=== PATIENT | female | born 1955 | race Caucasian/White ===

== ENCOUNTER 2022-02-03 12:12 | Emergency (ER) | payer OTHER ==
--- NOTE | 2022-02-03 12:49 | ED ---
URI HPI - General Chief Complaint: Upper Respiratory Infection Stated Complaint: URI Time Seen by Provider: 02/03/22 12:42 Source: patient, RN notes reviewed, old records reviewed Mode of arrival: ambulatory Limitations: no limitations - History of Present Illness Initial Comments: This is a well-appearing 67-year-old female that presents to the emergency room with complaints of cough, fatigue and sore throat past 5 days. Patient denies any chest pain or difficulty breathing. No nausea vomiting but has had some diarrhea which she attributes to her metformin. MD Complaint: cough, other (sore throat and fatigue) -: days(s) (6) Severity scale (1-10): 0 Quality: aching Consistency: constant Improves With: nothing - Related Data Home Medications Medication Instructions Recorded Confirmed Levothyroxine Sodium [Synthroid] 125 mcg PO DAILY 02/03/22 02/03/22 Metoprolol Tartrate [Lopressor] 50 mg PO BID 02/03/22 02/03/22 amLODIPine [Norvasc] 10 mg PO DAILY 02/03/22 02/03/22 metFORMIN HCL [Glucophage] 500 mg PO BID 02/03/22 02/03/22 predniSONE 5 - 10 mg PO DAILY 02/03/22 02/03/22 Allergies Allergy/AdvReac Type Severity Reaction Status Date / Time ciprofloxacin [From Cipro] Allergy Rash/Hives Verified 02/03/22 13:21 Penicillins Allergy Rash/Hives Verified 02/03/22 13:21 Sulfa (Sulfonamide Allergy Rash/Hives Verified 02/03/22 13:21 Antibiotics) tetracycline Allergy Rash/Hives Verified 02/03/22 13:21 trazodone Allergy Rash/Hives Verified 02/03/22 13:21 Review of Systems ROS Statement: Those systems with pertinent positive or pertinent negative responses have been documented in the HPI. ROS Other: All systems not noted in ROS Statement are negative. Past Medical History Past Medical History: Diabetes Mellitus History of Any Multi-Drug Resistant Organisms: None Reported Additional Past Surgical History / Comment(s): Aortic valve replacement Past Psychological History: No Psychological Hx Reported Smoking Status: Never smoker Past Alcohol Use History: None Reported Past Drug Use History: None Reported General Exam Limitations: no limitations General appearance: alert, in no apparent distress Head exam: Present: atraumatic, normocephalic Eye exam: Present: normal appearance. Absent: scleral icterus, conjunctival injection, periorbital swelling ENT exam: Present: normal exam, normal oropharynx, mucous membranes moist Expanded Mouth exam: Present: tongue normal, tongue elevation. Absent: drooling, trismus, muffled voice, laceration Throat exam: normal inspection. negative: tonsillar erythema, tonsillar exudate, R peritonsillar mass, L peritonsillar mass Neck exam: Present: full ROM. Absent: tenderness, meningismus, lymphadenopathy Respiratory exam: Present: normal lung sounds bilaterally. Absent: respiratory distress, accessory muscle use Cardiovascular Exam: Present: bradycardia, clicks GI/Abdominal exam: Present: soft. Absent: distended, tenderness Neurological exam: Present: alert, oriented X3, normal gait Psychiatric exam: Present: normal affect, normal mood Skin exam: Present: warm, dry, normal color. Absent: cyanosis, diaphoretic, petechiae, pallor Course Vital Signs 02/03/22 02/03/22 02/03/22 12:18 13:30 13:59 Temperature 98.7 F 98.3 F Pulse Rate 53 L 65 Respiratory 20 18 18 Rate Blood Pressure 152/71 143/85 O2 Sat by Pulse 99 98 Oximetry Medical Decision Making - Medical Decision Making Patient is influenza A positive. x-ray interpreted by me shows no evidence of consolidation. Radiologist interpretation mild cardiomegaly with pulmonary venous congestion, scattered parenchymal changes hyperinflation compatible with COPD. patient was offered pain medication and declined. Lung sounds are clear to auscultation oxygen saturation is 99% on room air. No respiratory distress. Patient instructed to continue Tylenol and Motrin as needed for any fevers or discomfort. Increase her fluid intake. Vitamin C vitamin D and zinc daily for immune health. Return to the emergency room with any new or concerning symptoms. Follow-up with her primary care doctor next week. Case discussed with Dr. Calzada - Lab Data Lab Results 02/03/22 Range/Units 12:28 Influenza Type A (PCR) Detected A (Not Detectd) Influenza Type B (PCR) Not Detected (Not Detectd) RSV (PCR) Not Detected (Not Detectd) SARS-CoV-2 (PCR) Not Detected (Not Detectd) Disposition Clinical Impression: Influenza A Disposition: HOME SELF-CARE Condition: Good Instructions (If sedation given, give patient instructions): Influenza (ED) Additional Instructions: Increase your fluid intake, Tylenol and or Motrin as needed for any fevers pain or discomfort. Continue taking the vitamin C, vitamin D and zinc. Return to the emergency room with pain or concerning symptoms. Follow-up with the primary care doctor next week. Is patient prescribed a controlled substance at d/c from ED?: No Referrals: Nonstaff,Physician [Primary Care Provider] - 1-2 days Time of Disposition: 13:53
--- NOTE | 2022-02-03 13:29 | XR ---
EXAMINATION TYPE: XR chest 2V DATE OF EXAM: 02/03/2022 COMPARISON: NONE HISTORY: Shortness of breath TECHNIQUE: Frontal and lateral views of the chest are obtained. FINDINGS: Scattered senescent parenchymal changes noted. Hyperinflation compatible with COPD. No evidence for infiltrate. No evidence for atelectasis. Mild cardiomegaly with pulmonary venous congestion. No overt failure. Mediastinal structures are stable and grossly unremarkable. No evidence for hilar prominence. Degenerative changes dorsal spine. IMPRESSION: 1. Mild cardiomegaly with pulmonary venous congestion.
[2022-02-03 13:54] VITALS: RESP 18
[2022-02-03 14:00] VITALS: BP 143/85; PULSE 65; TEMP 98.3
== END 2022-02-03 14:00 | disposition home or self-care (01) ==
LOC: EC 12:12
DX: J10.1 Influenza due to other identified influenza virus with other respiratory manifestations (principal); E11.9 Type 2 diabetes mellitus without complications; Z79.84 Long term (current) use of oral hypoglycemic drugs; Z79.899 Other long term (current) drug therapy; Z88.0 Allergy status to penicillin; Z88.2 Allergy status to sulfonamides; Z88.1 Allergy status to other antibiotic agents; Z88.8 Allergy status to other drugs, medicaments and biological substances; Z20.822 Contact with and (suspected) exposure to COVID-19
CPT/HCPCS: 71046; 87636; 99283

== ENCOUNTER 2022-06-21 08:27 | Day surgery (SDC) | payer MEDICARE ==
[~2022-06-21 08:27] MED LIST: LACTATED RINGERS 1,000 ML IV SCH; LIDOCAINE 1% (10MG/ML) FOR IV START INTRADERMA PRN
[2022-06-21 09:00] VITALS: RESP 16; TEMP 97.1
[2022-06-21 09:13] LABS: Glucose,Whole Blood 210 mg/dL (70-110)
[2022-06-21] MEDS ORDERED: PROPOFOL 10 MG/ML 20 ML VIAL IV ONE (09:18)
[2022-06-21] MEDS ORDERED: LIDOCAINE 2% INJ 20 MG/ML (2 ML VIAL) ONE (09:18)
--- NOTE | 2022-06-21 09:43 | P.PCN ---
Date of Procedure: 06/21/22 Procedure(s) Performed: BRIEF HISTORY: Patient is a 67-year-old pleasant white female scheduled for an elective colonoscopy as a part of screening for colon cancer/positive cologuard. PROCEDURE PERFORMED: Colonoscopy with snare polypectomy. PREOPERATIVE DIAGNOSIS: Screening for colon cancer/positive cologuard. IV sedation per Anesthesia. PROCEDURE: After informed consent was obtained, the patient, was brought into the endoscopy unit. IV sedation was administered by Anesthesia under continuous monitoring. Digital rectal examination was normal. Initially the Olympus CF-160 flexible video colonoscope was then inserted in the rectum, gradually advanced into the cecum without any difficulty. Careful examination was performed as the scope was gradually being withdrawn. Ileocecal valve and the appendiceal orifice were visualized and appeared normal. Prep was excellent. Mucosa of the cecum, appeared normal. In the ascending colon there was a 3 mm and 6 mm sessile polyps about by snare polypectomy. In the transverse colon there was a 5 limited polyp removed by snare polypectomy. Rest of the ascending colon, transverse colon, descending colon, appeared normal. In the sigmoid: There was a 1 cm pedunculated polyp removed by snare polypectomy. In the rectum there was a 5 mm polyp removed by snare polypectomy. Rest of the sigmoid colon, and rectum appeared normal. Retroflexion was performed in the rectum and no lesions were seen. The patient tolerated the procedure well. IMPRESSION: 3 mm and 6 mm ascending colon polyp status post polypectomy 5 mm transverse colon polyp status post polypectomy 1 cm pedunculated sigmoid polyp status post polypectomy 5 mm rectal polyp status post polypectomy RECOMMENDATIONS: Findings of this examination were discussed with the patient as well as a family. She was advised to follow with the biopsy results and have a repeat colonoscopy in 3 years
[2022-06-21 10:07] VITALS: BP 138/74; PULSE 68
== END 2022-06-21 10:23 ==
LOC: ORWHC2ENDO 08:27
PROVIDERS: ATTEND Internal Medicine Gastroenterology
DX: D12.2 Benign neoplasm of ascending colon (principal); D12.3 Benign neoplasm of transverse colon; D12.5 Benign neoplasm of sigmoid colon; E11.9 Type 2 diabetes mellitus without complications; E07.9 Disorder of thyroid, unspecified; I10 Essential (primary) hypertension; Z79.890 Hormone replacement therapy; Z88.8 Allergy status to other drugs, medicaments and biological substances; Z88.0 Allergy status to penicillin; Z88.2 Allergy status to sulfonamides; Z98.890 Other specified postprocedural states; Z79.82 Long term (current) use of aspirin; Z79.899 Other long term (current) drug therapy
CPT/HCPCS: 88305; 45385; J2704; J2001

== ENCOUNTER → 2024-08-22 | Outpatient (CLI) | payer MEDICARE ==
[2024-08-22 20:00] LABS: ALT 32 U/L (8-44); AST 25 U/L (13-35); Albumin 4.5 g/dL (3.8-4.9); Albumin/Globulin Ratio 2.14 Ratio (1.60-3.17); Alkaline Phosphatase 81 U/L (41-126); Anion Gap 11.10 mmol/L (4.00-12.00); BUN/Creat Ratio 22.50 Ratio (12.00-20.00); Blood Urea Nitrogen 13.5 mg/dL (9.0-27.0); Calcium 10.0 mg/dL (8.7-10.3); Carbon Dioxide 24.9 mmol/L (21.6-31.8); Chloride 108 mmol/L (96-109); Cholesterol 107.00 mg/dL (0.00-200.00); Globulin 2.1 g/dL (1.6-3.3); Glucose 97 mg/dL (70-110); HDL Cholesterol 39.90 mg/dL (40.00-60.00); LDL Cholesterol,Calculated 42.7 mg/dL (0.0-131.0); Potassium 5.2 mmol/L (3.5-5.5); Sodium 144 mmol/L (135-145); Total Protein 6.6 g/dL (6.2-8.2); Triglycerides 122.00 mg/dL (0.00-149.00); VLDL Calculation 24.40 mg/dL (5.00-40.00)
[2024-08-22 20:02] LABS: HCT 42.7 % (37.2-46.3); HGB 14.1 g/dL (12.0-15.0); MCH 30.6 pg (27.0-32.0); MCHC 33.0 g/dL (32.0-37.0); MCV 92.6 FL (80.0-97.0); NRBC Per 100 WBC 0 X 10*3/uL (0.00-0.01); Platelet Count 288 X 10*3/uL (140-440); RBC 4.61 X 10*6/uL (4.10-5.20); RDW 13.3 % (11.5-14.5); WBC 6.87 X 10*3/uL (4.50-10.00)
== END | disposition home or self-care (01) ==
LOC: LABWHC1 12:00
PROVIDERS: ATTEND Family Medicine
DX: Z13.220 Encounter for screening for lipoid disorders (principal); R53.83 Other fatigue; R73.02 Impaired glucose tolerance (oral)
CPT/HCPCS: 36415; 80053; 80061; 83036; 84443; 85027